=== PATIENT | female | born 1970 | race Caucasian/White ===

== ENCOUNTER 2018-11-04 14:39 | Emergency (ER) | payer OTHER, SELFPAY ==
[2018-11-04 15:04] VITALS: BP 133/85; PULSE 80; RESP 17; TEMP 36.9; O2SAT 97; BMI 27.0
[2018-11-04 15:45] VITALS: BP 116/79; PULSE 77; RESP 16; O2SAT 98
--- NOTE | 2018-11-04 16:06 | PC.NURSE ---
pt states vomiting for an hour last thursday, felt tired thursday and thursday, thursday diarrhea for an hour. pt states on and off fever since may 2018.
--- NOTE | 2018-11-04 16:20 | ED.ABDPAIN ---
HPI - Abdominal Pain <CATHIE Cheung - Last Filed: 11/04/18 22:00> General Chief Complaint: Abdominal Pain Stated Complaint: thinks she has an appendicitis Time Seen by Provider: 11/04/18 16:13 Source: patient Mode of arrival: ambulatory Limitations: no limitations History of Present Illness HPI narrative: 48-year-old healthy female that is a nonsmoker here for complaint of having nausea some vomiting and diarrhea over the past couple of days. She also reports she has had some right lower abdominal pain however she states she has had that for the last couple of years and is not necessarily acute. She was seen by her primary care provider today and due to the right lower quadrant pain was sent here for further evaluation and rule out appendicitis. She denies any fevers or chills. She is tolerating p.o. intake at this timeframe. She denies any urinary symptoms. No trauma to the abdomen. She reports that she has had abdominal discomfort on and off ever since having small bowel obstruction surgery and has had some slight adhesions. No other concerns or complaints this timeframe she denies any stressors relievers of her symptoms. Related Data Home Medications Medication Instructions Recorded Confirmed No Known Home Medications 11/04/18 11/04/18 Allergies Allergy/AdvReac Type Severity Reaction Status Date / Time Sulfa (Sulfonamide Allergy Intermediate Unverified 11/18/17 12:28 Antibiotics) [SULFA (SULFONAMIDE ANTIBIOTICS)] Review of Systems <CATHIE Cheung - Last Filed: 11/04/18 22:00> Constitutional Denies chills, Denies fever(s), Denies lethargy and Denies weakness Eyes Denies change in vision, Denies eye discharge, Denies irritation and Denies loss of vision ENT Ears, Nose, Mouth, and Throat: Denies change in voice, Denies neck pain and Denies sore throat Cardiovascular Denies chest pain, Denies irregular heart rhythm, Denies lightheadedness, Denies palpitations, Denies dyspnea, Denies dyspnea on exertion and Denies orthopnea Respiratory Denies cough, Denies dyspnea, Denies dyspnea on exertion and Denies wheezing Gastrointestinal Gastrointestinal: Reports abdominal pain, Reports diarrhea, Reports nausea and Reports vomiting Genitourinary Denies hematuria, Denies flank pain, Denies urinary incontinence and Denies urinary urgency Musculoskeletal Denies neck pain Integumentary/Breasts Denies pruritus, Denies erythema, Denies rash and Denies wounds Neurologic Denies loss of vision and Denies weakness Endocrine Denies palpitations Hematologic/Lymphatic Denies easy bruising Allergic/Immunologic Denies wheezing PFSH <CATHIE Cheung - Last Filed: 11/04/18 22:00> Social History Smoking Status: Never smoker Social History Smoking Status: Never smoker Exam <CATHIE Cheung - Last Filed: 11/04/18 22:00> Initial Vital Signs Initial Vital Signs: Vital Signs Temperature 98.5 F 11/04/18 15:04 Pulse Rate 80 11/04/18 15:04 Respiratory Rate 17 11/04/18 15:04 Blood Pressure 133/85 11/04/18 15:04 Pulse Oximetry 97 11/04/18 15:04 Const General: cooperative and well developed Nutritional Appearance: well nourished Orientation: alert, awake, oriented x3 and not confused HENPR Mouth: oral mucosae normal and moist mucous membranes Throat: posterior oropharynx normal Eyes Conjunctivae: conjunctivae normal Sclera: sclerae normal Pupils: PERRL EOM: EOM intact bilaterally Chest Chest: normal inspection of the chest Resp Effort & Inspection: normal respiratory effort, able to speak in complete sentences, no respiratory distress and no use of accessory muscles Auscultation: clear to auscultation bilaterally, no rales, no rhonchi and no wheezes Cardio Rate: regular rate Rhythm: regular rhythm Heart Sounds: no click, no gallops, no murmurs and no rubs Pulses: normal peripheral pulses GI Inspection: non-distended Palpation: soft, no hepatosplenomegaly, No guarding, No pulsatile mass and tender (Tenderness right lower quadrant) Auscultation: normal bowel sounds General: No CVA tenderness Skin General: no rashes or lesions noted, No jaundice and No petechiae Neuro General: alert, oriented x3, gait normal and no focal motor deficits Speech: speech normal <Kalyan Cano DO - Last Filed: 11/05/18 00:28> Initial Vital Signs Initial Vital Signs: Vital Signs Temperature 98.5 F 11/04/18 15:04 Pulse Rate 80 11/04/18 15:04 Respiratory Rate 17 11/04/18 15:04 Blood Pressure 133/85 11/04/18 15:04 Pulse Oximetry 97 11/04/18 15:04 Course <CATHIE Cheung - Last Filed: 11/04/18 22:00> Orders Ordered: ED Orders 11/04/18 15:55 Complete Blood Count AUTO DIFF Stat Comprehensive Metabolic Panel Stat Lipase Stat 11/04/18 16:33 CT abdomen pelvis w con Stat Discontinued Medications Sodium Chloride (Normal Saline 0.9%) 1,000 mls @ 1,000 mls/hr IV BOLUS ONE Stop: 11/04/18 17:28 Last Infusion: 11/04/18 18:37 Dose: 0 mls/hr Admin: 11/04/18 16:50 Dose: 1,000 mls/hr Vital Signs - 8 hr 11/04/18 18:06 Pulse Rate 72 Respiratory Rate 18 Blood Pressure [Right Arm] 128/72 Pulse Oximetry 100 <Kalyan Cano DO - Last Filed: 11/05/18 00:28> Orders Ordered: ED Orders 11/04/18 15:55 Complete Blood Count AUTO DIFF Stat Comprehensive Metabolic Panel Stat Lipase Stat 11/04/18 16:33 CT abdomen pelvis w con Stat Discontinued Medications Sodium Chloride (Normal Saline 0.9%) 1,000 mls @ 1,000 mls/hr IV BOLUS ONE Stop: 11/04/18 17:28 Last Infusion: 11/04/18 18:37 Dose: 0 mls/hr Admin: 11/04/18 16:50 Dose: 1,000 mls/hr Vital Signs - 8 hr 11/04/18 18:06 Pulse Rate 72 Respiratory Rate 18 Blood Pressure [Right Arm] 128/72 Pulse Oximetry 100 MDM - Abdominal Pain <CATHIE Cheung - Last Filed: 11/04/18 22:00> Lab Data Result diagrams: 11/04/18 15:55 11/04/18 15:55 Lab Results 11/04/18 11/04/18 Range/Units 15:55 15:55 WBC 5.4 (4.5-11.0) X10^3/uL RBC 5.14 (4.0-5.2) X10^6/uL Hgb 14.9 (12.0-16.0) g/dL Hct 44.3 (36-46) % MCV 86.1 (80-100) fL MCH 29.0 (26-34) PG MCHC 33.7 (30-36) % RDW 13.4 (11.6-14.8) % Plt Count 265 (150-400) X10^3/uL Neut % (Auto) 56.9 (50-75) % Lymph % (Auto) 34.9 (25-40) % [place] % (Auto) 6.5 (3-14) % Eos % (Auto) 1.1 L (2-4) % Baso % (Auto) 0.6 (0-2) % Neut # (Auto) 3100 (0686-1587) /uL Lymph # (Auto) 1900 (9693-8624) /uL [place] # (Auto) 300 (0-900) /uL Eos # (Auto) 100 (0-450) /uL Baso # (Auto) 0 (0-100) /uL Sodium 138 (137-145) mmol/L Potassium 3.7 (3.4-5.1) mmol/L Chloride 104 (98-107) mmol/L Carbon Dioxide 23 (22-32) mmol/L BUN 8 (7-17) mg/dL Creatinine 0.70 (0.52-1.04) mg/dL Estimated GFR > 60.0 (>60) mL/min BUN/Creatinine Ratio 11.4 (6-22) Glucose 85 (70-100) mg/dL Calcium 8.7 (8.4-10.2) mg/dL Total Bilirubin 0.4 (0.2-1.3) mg/dL AST 33 (14-36) IU/L ALT 32 (9-52) IU/L Alkaline Phosphatase 49 (38-126) U/L Total Protein 7.2 (6.3-8.2) g/dL Albumin 4.3 (3.5-5.0) g/dL Globulin 2.9 (1.7-4.1) g/dL Albumin/Globulin Ratio 1.5 (1.0-2.8) Lipase 100 (23-300) U/L Point of care testing: Point of Care Testing Test Results Negative Urine Dip Bedside Urine Glucose Negative Bedside Urine Bilirubin - Negative Bedside Urine Ketone ++ 40 Urine Specific [place] 1.025 Bedside Urine Occult Blood - Negative Bedside Urine pH 6.0 Bedside Urine Protein - Negative Bedside Urine Urobilinogen - Negative Bedside Urine Nitrite - Negative Bedside Urine Leukocytes - Negative Esterase Imaging Data CT scan - abdomen: Radiologist's impression: [address] [address] [address] Scan Report Signed Patient: Edwin Grajeda BANNER#: [id number] : 1970Acct:[id number] Age/Sex: 48 / FDate of Service: 11/04/18 Loc: ED Accession Number: [id number] Procedure: CT abdomen pelvis w con Ordering Provider: Ryan Valdez PROCEDURE: CT ABDOMEN PELVIS W CON INDICATIONS: Right lower quadrant pain TECHNIQUE: After the administration of intravenous contrast, 5 mm thick sections acquired from the diaphragm to the symphysis. 5 mm coronal and sagittal reformats were acquired. For radiation dose reduction, the following was used: automated exposure control, adjustment of mA and/or kV according to patient size. COMPARISON: [facility], CR, ABDOMEN ACUTE SERIES, 03/04/2017, 14:52. [facility], CT, ABDOMEN/PELVIS WITH CONTRAST, 02/13/2017, 19:58. FINDINGS: Image quality: Excellent. ABDOMEN: Lung bases: Lung bases are clear. Heart size is normal. Solid organs: Liver is normal in size. A subcentimeter liver cyst can be seen involving right liver dome. Incidental note is made of focal fatty infiltration adjacent to the falciform ligament, which is not regarded to be pathologic. Gallbladder wall is not thickened. Biliary system is non dilated. Pancreas enhances normally. Spleen is normal in size and enhancement. Incidental note is made of an accessory spleen along the hilum of the primary spleen. No adrenal nodules. Kidneys demonstrate normal size and enhancement, without hydronephrosis. Peritoneum and bowel: In this patient with this given history, scrutiny is given to the appendix. No appendix (either normal or abnormal) is identified on this study. The cecum is noted to be high riding is seen within the superior central abdomen, as before. There is mild wall thickening seen of the ascending colon. No dilated loops of small bowel are seen. No free air or significant free fluid can be seen. No loculated abscess can be seen. Nodes and vessels: No retroperitoneal or mesenteric adenopathy by size criteria. Aorta and inferior vena cava are normal in size. Miscellaneous: A mild periumbilical hernia is seen, containing fat. PELVIS: Genitourinary: Bladder wall thickness is normal. Miscellaneous: No inguinal hernias or adenopathy. Bones: No suspicious bony lesions. No vertebral body compression fractures. IMPRESSION: These imaging findings are most compatible with colitis of the ascending colon. Please correlate with infectious and inflammatory causes. The cecum is seen within the superior central abdomen, as before. No appendix is seen, either normal or abnormal. Negative for small bowel obstruction. Incidental note is made of: Subcentimeter right liver cyst Focal fatty liver infiltration Mild fat-containing periumbilical hernia Dictated by: Reinaldo Samuels M.D. on 11/04/2018 at 16:13 Approved by: Reinaldo Samuels M.D. on 11/04/2018 at 16:20 [facility] Narrative Medical decision making narrative: CT of the abdomen was obtained and shows some thickening of the wall of the ascending colon no other acute findings are found. Appendix is not seen at this time with no signs of appendicitis. CBC was obtained was unremarkable. Chem panel was obtained was also unremarkable. Lipase was unremarkable. Urinalysis was negative for both urinary tract infection and . Patient has had pain into this area on and off for the past almost 2 years. Recent nausea vomiting and diarrhea may be viral in nature. Offered to treat with Zofran patient refused. Use [id number] Tylenol as needed for any discomfort. Plenty of fluids. Will treat this acute episode nausea vomiting diarrhea as a viral in nature. Follow up with primary care provider next week for re-evaluation. If continued right abdominal pain consider GI referral. For any worsening symptoms return emergency room. <Kalyan Cano, DO - Last Filed: 11/05/18 00:28> Lab Data Lab Results 11/04/18 11/04/18 Range/Units 15:55 15:55 WBC 5.4 (4.5-11.0) X10^3/uL RBC 5.14 (4.0-5.2) X10^6/uL Hgb 14.9 (12.0-16.0) g/dL Hct 44.3 (36-46) % MCV 86.1 (80-100) fL MCH 29.0 (26-34) PG MCHC 33.7 (30-36) % RDW 13.4 (11.6-14.8) % Plt Count 265 (150-400) X10^3/uL Neut % (Auto) 56.9 (50-75) % Lymph % (Auto) 34.9 (25-40) % [place] % (Auto) 6.5 (3-14) % Eos % (Auto) 1.1 L (2-4) % Baso % (Auto) 0.6 (0-2) % Neut # (Auto) 3100 (1565-1477) /uL Lymph # (Auto) 1900 (8438-4027) /uL [place] # (Auto) 300 (0-900) /uL Eos # (Auto) 100 (0-450) /uL Baso # (Auto) 0 (0-100) /uL Sodium 138 (137-145) mmol/L Potassium 3.7 (3.4-5.1) mmol/L Chloride 104 (98-107) mmol/L Carbon Dioxide 23 (22-32) mmol/L BUN 8 (7-17) mg/dL Creatinine 0.70 (0.52-1.04) mg/dL Estimated GFR > 60.0 (>60) mL/min BUN/Creatinine Ratio 11.4 (6-22) Glucose 85 (70-100) mg/dL Calcium 8.7 (8.4-10.2) mg/dL Total Bilirubin 0.4 (0.2-1.3) mg/dL AST 33 (14-36) IU/L ALT 32 (9-52) IU/L Alkaline Phosphatase 49 (38-126) U/L Total Protein 7.2 (6.3-8.2) g/dL Albumin 4.3 (3.5-5.0) g/dL Globulin 2.9 (1.7-4.1) g/dL Albumin/Globulin Ratio 1.5 (1.0-2.8) Lipase 100 (23-300) U/L Point of care testing: Point of Care Testing Test Results Negative Urine Dip Bedside Urine Glucose Negative Bedside Urine Bilirubin - Negative Bedside Urine Ketone ++ 40 Urine Specific [place] 1.025 Bedside Urine Occult Blood - Negative Bedside Urine pH 6.0 Bedside Urine Protein - Negative Bedside Urine Urobilinogen - Negative Bedside Urine Nitrite - Negative Bedside Urine Leukocytes - Negative Esterase Discharge Plan Departure Patient Disposition: Home Clinical Impression: Abdominal pain Qualifiers: Abdominal location: right lower quadrant Qualified Code(s): R10.31 - Right lower quadrant pain Discharge Date/Time: 11/04/18 18:40 Interventions: ED Discharge Assessment Last Done: 11/04/18 18:38 Instructions: DI for Abdominal Pain-Adult Activity Restrictions/Additional Instructions: CT of the abdomen shows some mild thickening of the ascending colon wall. This may be inflammatory or infectious laboratory results do not point to an infectious process at this timeframe. And since have had pain into this area for long-term do not believe it is infectious at this timeframe. Does not appear that you have appendicitis at this timeframe. Nausea vomiting diarrhea may be due to a viral illness. Plenty of fluids and rest. Follow up with her primary care provider next week for re-evaluation. If continued pain into the area doctor here today primary care provider about referral to GI for further evaluation. For any worsening symptoms return to the emergency room. Prescriptions: No Action No Known Home Medications RF: 0 Referrals: Kristofer Davis MD [Primary Care Provider] - <Kalyan Cano DO - Last Filed: 11/05/18 00:28> Cosign ED Attending Paulature Attestation: I was immediately available in the department for consultation. Documentation has been reviewed. I agree with assessment and plan.
--- NOTE | 2018-11-04 16:33 | DI.CT.S_ITS ---
PROCEDURE: CT ABDOMEN PELVIS W CON INDICATIONS: Right lower quadrant pain TECHNIQUE: After the administration of intravenous contrast, 5 mm thick sections acquired from the diaphragm to the symphysis. 5 mm coronal and sagittal reformats were acquired. For radiation dose reduction, the following was used: automated exposure control, adjustment of mA and/or kV according to patient size. COMPARISON: [facility], CR, ABDOMEN ACUTE SERIES, 03/04/2017, 14:52. [facility], CT, ABDOMEN/PELVIS WITH CONTRAST, 02/13/2017, 19:58. FINDINGS: Image quality: Excellent. ABDOMEN: Lung bases: Lung bases are clear. Heart size is normal. Solid organs: Liver is normal in size. A subcentimeter liver cyst can be seen involving right liver dome. Incidental note is made of focal fatty infiltration adjacent to the falciform ligament, which is not regarded to be pathologic. Gallbladder wall is not thickened. Biliary system is non dilated. Pancreas enhances normally. Spleen is normal in size and enhancement. Incidental note is made of an accessory spleen along the hilum of the primary spleen. No adrenal nodules. Kidneys demonstrate normal size and enhancement, without hydronephrosis. Peritoneum and bowel: In this patient with this given history, scrutiny is given to the appendix. No appendix (either normal or abnormal) is identified on this study. The cecum is noted to be high riding is seen within the superior central abdomen, as before. There is mild wall thickening seen of the ascending colon. No dilated loops of small bowel are seen. No free air or significant free fluid can be seen. No loculated abscess can be seen. Nodes and vessels: No retroperitoneal or mesenteric adenopathy by size criteria. Aorta and inferior vena cava are normal in size. Miscellaneous: A mild periumbilical hernia is seen, containing fat. PELVIS: Genitourinary: Bladder wall thickness is normal. Miscellaneous: No inguinal hernias or adenopathy. Bones: No suspicious bony lesions. No vertebral body compression fractures. IMPRESSION: These imaging findings are most compatible with colitis of the ascending colon. Please correlate with infectious and inflammatory causes. The cecum is seen within the superior central abdomen, as before. No appendix is seen, either normal or abnormal. Negative for small bowel obstruction. Incidental note is made of: Subcentimeter right liver cyst Focal fatty liver infiltration Mild fat-containing periumbilical hernia Dictated by: Reinaldo Samuels M.D. on 11/04/2018 at 16:13 Approved by: Reinaldo Samuels M.D. on 11/04/2018 at 16:20
[2018-11-04 16:40] LABS: Add Manual Diff / Slide Review NO; Basophils Absolute Auto 0 /uL (0-100); Basophils Percent Auto 0.6 % (0-2); Eosinophils Absolute Auto 100 /uL (0-450); Eosinophils Percent Auto 1.1 % (2-4); Hematocrit 44.3 % (36-46); Hemoglobin 14.9 g/dL (12.0-16.0); Lymphocytes Absolute Auto 1900 /uL (1100-4500); Lymphocytes Percent Auto 34.9 % (25-40); Mean Corpuscular HGB Conc 33.7 % (30-36); Mean Corpuscular Volume 86.1 fL (80-100); Monocytes Absolute Auto 300 /uL (0-900); Monocytes Percent Auto 6.5 % (3-14); Neutrophils Absolute Auto 3100 /uL (1500-7000); Neutrophils Percent Auto 56.9 % (50-75); Platelet Count 265 X10^3/uL (150-400); Red Blood Cell Count 5.14 X10^6/uL (4.0-5.2); Red Cell Distribution Width 13.4 % (11.6-14.8); White Blood Cell Count 5.4 X10^3/uL (4.5-11.0)
[2018-11-04 16:45] LABS: Alanine Aminotransferase 32 IU/L (9-52); Albumin 4.3 g/dL (3.5-5.0); Albumin Globulin Ratio 1.5 (1.0-2.8); Alkaline Phosphatase 49 U/L (38-126); Aspartate Aminotransferase 33 IU/L (14-36); BUN Creatinine Ratio 11.4 (6-22); Bilirubin Total 0.4 mg/dL (0.2-1.3); Blood Urea Nitrogen 8 mg/dL (7-17); Calcium 8.7 mg/dL (8.4-10.2); Carbon Dioxide 23 mmol/L (22-32); Chloride 104 mmol/L (98-107); Estimated Glomerular Filt Rate > 60.0 mL/min (>60); Globulin 2.9 g/dL (1.7-4.1); Glucose 85 mg/dL (70-100); HEMOLYSIS 27 (0-50); Lipase 100 U/L (23-300); Potassium 3.7 mmol/L (3.4-5.1); Sodium 138 mmol/L (137-145); Total Protein 7.2 g/dL (6.3-8.2)
[2018-11-04] MEDS: SODIUM CHLORIDE 0.9% 1,000 ML 1000 ML IV (16:50)
[2018-11-04 18:06] VITALS: BP 128/72; PULSE 72; RESP 18; O2SAT 100
--- NOTE | 2018-11-04 18:12 | ED_ITS ---
HPI - Abdominal Pain <CATHIE Cheung - Last Filed: 11/04/18 22:00> General Chief Complaint: Abdominal Pain Stated Complaint: thinks she has an appendicitis Time Seen by Provider: 11/04/18 16:13 Source: patient Mode of arrival: ambulatory Limitations: no limitations History of Present Illness HPI narrative: 48-year-old healthy female that is a nonsmoker here for complaint of having nausea some vomiting and diarrhea over the past couple of days. She also reports she has had some right lower abdominal pain however she states she has had that for the last couple of years and is not necessarily acute. She was seen by her primary care provider today and due to the right lower quadrant pain was sent here for further evaluation and rule out appendicitis. She denies any fevers or chills. She is tolerating p.o. intake at this timeframe. She denies any urinary symptoms. No trauma to the abdomen. She reports that she has had abdominal discomfort on and off ever since having small bowel obstruction surgery and has had some slight adhesions. No other concerns or complaints this timeframe she denies any stressors relievers of her symptoms. Related Data Home Medications Medication Instructions Recorded Confirmed No Known Home Medications 11/04/18 11/04/18 Allergies Allergy/AdvReac Type Severity Reaction Status Date / Time Sulfa (Sulfonamide Allergy Intermediate Unverified 11/18/17 12:28 Antibiotics) [SULFA (SULFONAMIDE ANTIBIOTICS)] Review of Systems <CATHIE Cheung - Last Filed: 11/04/18 22:00> Constitutional Denies chills, Denies fever(s), Denies lethargy and Denies weakness Eyes Denies change in vision, Denies eye discharge, Denies irritation and Denies loss of vision ENT Ears, Nose, Mouth, and Throat: Denies change in voice, Denies neck pain and Denies sore throat Cardiovascular Denies chest pain, Denies irregular heart rhythm, Denies lightheadedness, Denies palpitations, Denies dyspnea, Denies dyspnea on exertion and Denies orthopnea Respiratory Denies cough, Denies dyspnea, Denies dyspnea on exertion and Denies wheezing Gastrointestinal Gastrointestinal: Reports abdominal pain, Reports diarrhea, Reports nausea and Reports vomiting Genitourinary Denies hematuria, Denies flank pain, Denies urinary incontinence and Denies urinary urgency Musculoskeletal Denies neck pain Integumentary/Breasts Denies pruritus, Denies erythema, Denies rash and Denies wounds Neurologic Denies loss of vision and Denies weakness Endocrine Denies palpitations Hematologic/Lymphatic Denies easy bruising Allergic/Immunologic Denies wheezing PFSH <CATHIE Cheung - Last Filed: 11/04/18 22:00> Social History Smoking Status: Never smoker Social History Smoking Status: Never smoker Exam <CATHIE Cheung - Last Filed: 11/04/18 22:00> Initial Vital Signs Initial Vital Signs: Vital Signs Temperature 98.5 F 11/04/18 15:04 Pulse Rate 80 11/04/18 15:04 Respiratory Rate 17 11/04/18 15:04 Blood Pressure 133/85 11/04/18 15:04 Pulse Oximetry 97 11/04/18 15:04 Const General: cooperative and well developed Nutritional Appearance: well nourished Orientation: alert, awake, oriented x3 and not confused HENCO Mouth: oral mucosae normal and moist mucous membranes Throat: posterior oropharynx normal Eyes Conjunctivae: conjunctivae normal Sclera: sclerae normal Pupils: PERRL EOM: EOM intact bilaterally Chest Chest: normal inspection of the chest Resp Effort & Inspection: normal respiratory effort, able to speak in complete sentences, no respiratory distress and no use of accessory muscles Auscultation: clear to auscultation bilaterally, no rales, no rhonchi and no wheezes Cardio Rate: regular rate Rhythm: regular rhythm Heart Sounds: no click, no gallops, no murmurs and no rubs Pulses: normal peripheral pulses GI Inspection: non-distended Palpation: soft, no hepatosplenomegaly, No guarding, No pulsatile mass and tender (Tenderness right lower quadrant) Auscultation: normal bowel sounds General: No CVA tenderness Skin General: no rashes or lesions noted, No jaundice and No petechiae Neuro General: alert, oriented x3, gait normal and no focal motor deficits Speech: speech normal <Kalyan Cano DO - Last Filed: 11/05/18 00:28> Initial Vital Signs Initial Vital Signs: Vital Signs Temperature 98.5 F 11/04/18 15:04 Pulse Rate 80 11/04/18 15:04 Respiratory Rate 17 11/04/18 15:04 Blood Pressure 133/85 11/04/18 15:04 Pulse Oximetry 97 11/04/18 15:04 Course <CATHIE Cheung - Last Filed: 11/04/18 22:00> Orders Ordered: ED Orders 11/04/18 15:55 Complete Blood Count AUTO DIFF Stat Comprehensive Metabolic Panel Stat Lipase Stat 11/04/18 16:33 CT abdomen pelvis w con Stat Discontinued Medications Sodium Chloride (Normal Saline 0.9%) 1,000 mls @ 1,000 mls/hr IV BOLUS ONE Stop: 11/04/18 17:28 Last Infusion: 11/04/18 18:37 Dose: 0 mls/hr Admin: 11/04/18 16:50 Dose: 1,000 mls/hr Vital Signs - 8 hr 11/04/18 18:06 Pulse Rate 72 Respiratory Rate 18 Blood Pressure [Right Arm] 128/72 Pulse Oximetry 100 <Kalyan Cano DO - Last Filed: 11/05/18 00:28> Orders Ordered: ED Orders 11/04/18 15:55 Complete Blood Count AUTO DIFF Stat Comprehensive Metabolic Panel Stat Lipase Stat 11/04/18 16:33 CT abdomen pelvis w con Stat Discontinued Medications Sodium Chloride (Normal Saline 0.9%) 1,000 mls @ 1,000 mls/hr IV BOLUS ONE Stop: 11/04/18 17:28 Last Infusion: 11/04/18 18:37 Dose: 0 mls/hr Admin: 11/04/18 16:50 Dose: 1,000 mls/hr Vital Signs - 8 hr 11/04/18 18:06 Pulse Rate 72 Respiratory Rate 18 Blood Pressure [Right Arm] 128/72 Pulse Oximetry 100 MDM - Abdominal Pain <CATHIE Cheung - Last Filed: 11/04/18 22:00> Lab Data Result diagrams: 11/04/18 15:55 11/04/18 15:55 Lab Results 11/04/18 11/04/18 Range/Units 15:55 15:55 WBC 5.4 (4.5-11.0) X10^3/uL RBC 5.14 (4.0-5.2) X10^6/uL Hgb 14.9 (12.0-16.0) g/dL Hct 44.3 (36-46) % MCV 86.1 (80-100) fL MCH 29.0 (26-34) PG MCHC 33.7 (30-36) % RDW 13.4 (11.6-14.8) % Plt Count 265 (150-400) X10^3/uL Neut % (Auto) 56.9 (50-75) % Lymph % (Auto) 34.9 (25-40) % [place] % (Auto) 6.5 (3-14) % Eos % (Auto) 1.1 L (2-4) % Baso % (Auto) 0.6 (0-2) % Neut # (Auto) 3100 (7377-3894) /uL Lymph # (Auto) 1900 (5500-0754) /uL [place] # (Auto) 300 (0-900) /uL Eos # (Auto) 100 (0-450) /uL Baso # (Auto) 0 (0-100) /uL Sodium 138 (137-145) mmol/L Potassium 3.7 (3.4-5.1) mmol/L Chloride 104 (98-107) mmol/L Carbon Dioxide 23 (22-32) mmol/L BUN 8 (7-17) mg/dL Creatinine 0.70 (0.52-1.04) mg/dL Estimated GFR > 60.0 (>60) mL/min BUN/Creatinine Ratio 11.4 (6-22) Glucose 85 (70-100) mg/dL Calcium 8.7 (8.4-10.2) mg/dL Total Bilirubin 0.4 (0.2-1.3) mg/dL AST 33 (14-36) IU/L ALT 32 (9-52) IU/L Alkaline Phosphatase 49 (38-126) U/L Total Protein 7.2 (6.3-8.2) g/dL Albumin 4.3 (3.5-5.0) g/dL Globulin 2.9 (1.7-4.1) g/dL Albumin/Globulin Ratio 1.5 (1.0-2.8) Lipase 100 (23-300) U/L Point of care testing: Point of Care Testing Test Results Negative Urine Dip Bedside Urine Glucose Negative Bedside Urine Bilirubin - Negative Bedside Urine Ketone ++ 40 Urine Specific [place] 1.025 Bedside Urine Occult Blood - Negative Bedside Urine pH 6.0 Bedside Urine Protein - Negative Bedside Urine Urobilinogen - Negative Bedside Urine Nitrite - Negative Bedside Urine Leukocytes - Negative Esterase Imaging Data CT scan - abdomen: Radiologist's impression: [address] [address] [address] Scan Report Signed Patient: Edwin Grajeda [facility]#: [id number] : 1970Acct:[id number] Age/Sex: 48 / FDate of Service: 11/04/18 Loc: ED Accession Number: [id number] Procedure: CT abdomen pelvis w con Ordering Provider: Ryan Valdez PROCEDURE: CT ABDOMEN PELVIS W CON INDICATIONS: Right lower quadrant pain TECHNIQUE: After the administration of intravenous contrast, 5 mm thick sections acquired from the diaphragm to the symphysis. 5 mm coronal and sagittal reformats were acquired. For radiation dose reduction, the following was used: automated exposure control, adjustment of mA and/or kV according to patient size. COMPARISON: [facility], CR, ABDOMEN ACUTE SERIES, 03/04/2017, 14:52. [facility], CT, ABDOMEN/PELVIS WITH CONTRAST, 02/13/2017, 19:58. FINDINGS: Image quality: Excellent. ABDOMEN: Lung bases: Lung bases are clear. Heart size is normal. Solid organs: Liver is normal in size. A subcentimeter liver cyst can be seen involving right liver dome. Incidental note is made of focal fatty infiltration adjacent to the falciform ligament, which is not regarded to be pathologic. Gallbladder wall is not thickened. Biliary system is non dilated. Pancreas enhances normally. Spleen is normal in size and enhancement. Incidental note is made of an accessory spleen along the hilum of the primary spleen. No adrenal nodules. Kidneys demonstrate normal size and enhancement, without hydronephrosis. Peritoneum and bowel: In this patient with this given history, scrutiny is given to the appendix. No appendix (either normal or abnormal) is identified on this study. The cecum is noted to be high riding is seen within the superior central abdomen, as before. There is mild wall thickening seen of the ascending colon. No dilated loops of small bowel are seen. No free air or significant free fluid can be seen. No loculated abscess can be seen. Nodes and vessels: No retroperitoneal or mesenteric adenopathy by size criteria. Aorta and inferior vena cava are normal in size. Miscellaneous: A mild periumbilical hernia is seen, containing fat. PELVIS: Genitourinary: Bladder wall thickness is normal. Miscellaneous: No inguinal hernias or adenopathy. Bones: No suspicious bony lesions. No vertebral body compression fractures. IMPRESSION: These imaging findings are most compatible with colitis of the ascending colon. Please correlate with infectious and inflammatory causes. The cecum is seen within the superior central abdomen, as before. No appendix is seen, either normal or abnormal. Negative for small bowel obstruction. Incidental note is made of: Subcentimeter right liver cyst Focal fatty liver infiltration Mild fat-containing periumbilical hernia Dictated by: Reinaldo Samuels M.D. on 11/04/2018 at 16:13 Approved by: Reinaldo Samuels M.D. on 11/04/2018 at 16:20 [facility] Narrative Medical decision making narrative: CT of the abdomen was obtained and shows some thickening of the wall of the ascending colon no other acute findings are found. Appendix is not seen at this time with no signs of appendicitis. CBC was obtained was unremarkable. Chem panel was obtained was also unremarkable. Lipase was unremarkable. Urinalysis was negative for both urinary tract infection and . Patient has had pain into this area on and off for the past almost 2 years. Recent nausea vomiting and diarrhea may be viral in nature. Offered to treat with Zofran patient refused. Use [id number] Tylenol as needed for any discomfort. Plenty of fluids. Will treat this acute episode nausea vomiting diarrhea as a viral in nature. Follow up with primary care provider next week for re-evaluation. If continued right abdominal pain consider GI referral. For any worsening symptoms return emergency room. <Kalyan Cano, DO - Last Filed: 11/05/18 00:28> Lab Data Lab Results 11/04/18 11/04/18 Range/Units 15:55 15:55 WBC 5.4 (4.5-11.0) X10^3/uL RBC 5.14 (4.0-5.2) X10^6/uL Hgb 14.9 (12.0-16.0) g/dL Hct 44.3 (36-46) % MCV 86.1 (80-100) fL MCH 29.0 (26-34) PG MCHC 33.7 (30-36) % RDW 13.4 (11.6-14.8) % Plt Count 265 (150-400) X10^3/uL Neut % (Auto) 56.9 (50-75) % Lymph % (Auto) 34.9 (25-40) % [place] % (Auto) 6.5 (3-14) % Eos % (Auto) 1.1 L (2-4) % Baso % (Auto) 0.6 (0-2) % Neut # (Auto) 3100 (7476-4144) /uL Lymph # (Auto) 1900 (8983-3095) /uL [place] # (Auto) 300 (0-900) /uL Eos # (Auto) 100 (0-450) /uL Baso # (Auto) 0 (0-100) /uL Sodium 138 (137-145) mmol/L Potassium 3.7 (3.4-5.1) mmol/L Chloride 104 (98-107) mmol/L Carbon Dioxide 23 (22-32) mmol/L BUN 8 (7-17) mg/dL Creatinine 0.70 (0.52-1.04) mg/dL Estimated GFR > 60.0 (>60) mL/min BUN/Creatinine Ratio 11.4 (6-22) Glucose 85 (70-100) mg/dL Calcium 8.7 (8.4-10.2) mg/dL Total Bilirubin 0.4 (0.2-1.3) mg/dL AST 33 (14-36) IU/L ALT 32 (9-52) IU/L Alkaline Phosphatase 49 (38-126) U/L Total Protein 7.2 (6.3-8.2) g/dL Albumin 4.3 (3.5-5.0) g/dL Globulin 2.9 (1.7-4.1) g/dL Albumin/Globulin Ratio 1.5 (1.0-2.8) Lipase 100 (23-300) U/L Point of care testing: Point of Care Testing Test Results Negative Urine Dip Bedside Urine Glucose Negative Bedside Urine Bilirubin - Negative Bedside Urine Ketone ++ 40 Urine Specific [place] 1.025 Bedside Urine Occult Blood - Negative Bedside Urine pH 6.0 Bedside Urine Protein - Negative Bedside Urine Urobilinogen - Negative Bedside Urine Nitrite - Negative Bedside Urine Leukocytes - Negative Esterase Discharge Plan Departure Patient Disposition: Home Clinical Impression: Abdominal pain Qualifiers: Abdominal location: right lower quadrant Qualified Code(s): R10.31 - Right lower quadrant pain Discharge Date/Time: 11/04/18 18:40 Interventions: ED Discharge Assessment Last Done: 11/04/18 18:38 Instructions: DI for Abdominal Pain-Adult Activity Restrictions/Additional Instructions: CT of the abdomen shows some mild thickening of the ascending colon wall. This may be inflammatory or infectious laboratory results do not point to an infectious process at this timeframe. And since have had pain into this area for long-term do not believe it is infectious at this timeframe. Does not appear that you have appendicitis at this timeframe. Nausea vomiting diarrhea may be due to a viral illness. Plenty of fluids and rest. Follow up with her primary care provider next week for re-evaluation. If continued pain into the area doctor here today primary care provider about referral to GI for further evaluation. For any worsening symptoms return to the emergency room. Prescriptions: No Action No Known Home Medications RF: 0 Referrals: Kristofer Davis MD [Primary Care Provider] - <Kalyan Cano DO - Last Filed: 11/05/18 00:28> Cosign ED Attending Paulature Attestation: I was immediately available in the department for consultation. Documentation has been reviewed. I agree with assessment and plan.
== END 2018-11-04 18:40 | disposition home or self-care (01) ==
PROVIDERS: Emergency Provider Nurse Practitioner Family; Family Provider Internal Medicine; PCP Internal Medicine
DX: R10.31 Right lower quadrant pain (principal)
CPT/HCPCS: 36591; 74177; 80053; 81003; 81025; 83690; 85025; 96360; 96361; 99283; 99284; Q9967

== ENCOUNTER → 2022-06-18 10:28 | Outpatient (CLI) | payer OTHER, MEDICAID, SELFPAY ==
[2022-06-18 20:44] LABS: Add Manual Diff / Slide Review NO; Basophils Absolute Auto 0 /uL (0-100); Basophils Percent Auto 0.7 % (0-2); Eosinophils Absolute Auto 100 /uL (0-450); Eosinophils Percent Auto 1.8 % (2-4); Hematocrit 45.7 % (36-46); Hemoglobin 15.2 g/dL (12.0-16.0); Lymphocytes Absolute Auto 2200 /uL (1100-4500); Lymphocytes Percent Auto 31.1 % (25-40); Mean Corpuscular HGB Conc 33.2 % (30-36); Mean Corpuscular Hemoglobin 28.3 PG (26-34); Mean Corpuscular Volume 85.4 fL (80-100); Monocytes Absolute Auto 400 /uL (0-900); Monocytes Percent Auto 6.4 % (3-14); Neutrophils Absolute Auto 4200 /uL (1500-7000); Platelet Count 298 X10^3/uL (150-400); Red Blood Cell Count 5.35 X10^6/uL (4.0-5.2); Red Cell Distribution Width 13.6 % (11.6-14.8); White Blood Cell Count 6.9 X10^3/uL (4.5-11.0)
[2022-06-18 20:55] LABS: Alanine Aminotransferase 26 IU/L (<35); Albumin 4.6 g/dL (3.5-5.0); Albumin Globulin Ratio 1.5 (1.0-2.8); Alkaline Phosphatase 82 U/L (38-126); Aspartate Aminotransferase 31 IU/L (14-36); BUN Creatinine Ratio 14.5 (6-22); Bilirubin Total 0.7 mg/dL (0.2-1.3); Blood Urea Nitrogen 11 mg/dL (7-17); Calcium 9.4 mg/dL (8.4-10.2); Carbon Dioxide 26 mmol/L (22-32); Chloride 101 mmol/L (98-107); Cholesterol 227 mg/dL (140-199); Estimated Glomerular Filt Rate > 60 mL/min (>60); Globulin 3.1 g/dL (1.7-4.1); Glucose 94 mg/dL (70-100); HDL Cholesterol 70 mg/dL (40-60); HEMOLYSIS 22 (0-50); LDL Cholesterol Calculated 138 mg/dL (<100); Potassium 3.7 mmol/L (3.4-5.1); Sodium 138 mmol/L (137-145); Total Protein 7.7 g/dL (6.3-8.2); Triglycerides 93 mg/dL (35-150)
== END ==
PROVIDERS: Family Provider Internal Medicine; PCP Physician Assistant; Visit Provider Physician Assistant
DX: Z12.11 Encounter for screening for malignant neoplasm of colon (principal); Z13.6 Encounter for screening for cardiovascular disorders; Z79.899 Other long term (current) drug therapy; F32.A Depression, unspecified; F41.9 Anxiety disorder, unspecified
CPT/HCPCS: 80053; 80061; 84443; 85025

== ENCOUNTER → 2023-05-23 15:15 | Outpatient (CLI) | payer OTHER, MEDICAID, SELFPAY ==
--- NOTE | 2023-05-23 | DI.MG.S_ITS ---
BILATERAL DIGITAL SCREENING MAMMOGRAM 3D/2D WITH CAD: 05/23/2023 CLINICAL: Routine screening. comparison: 05/14/2020, 07/12/2013 Both breasts are heterogeneously dense, which may obscure small masses (category c / 51-75% glandular tissue). Current study was also evaluated with a Computer Aided Detection (CAD) system. There is a possible developing irregular asymmetry in the right breast at 1 o'clock middle depth. This is seen in additional views and demonstrated by prior ultrasound. This is more prominent and correlates as an incidental finding. No other significant masses, calcifications, or other findings are seen in either breast. IMPRESSION: INCOMPLETE: NEEDS ADDITIONAL IMAGING EVALUATION The possible developing irregular asymmetry in the right breast is indeterminate. Additional views with possible ultrasound are recommended. Based on the Tyrer Cuzick model (a risk assessment model) the patient's lifetime risk is 14.2% and her 10 year risk is 3.5%. According to the ACR, ACS, and NCCN guidelines, an annual breast MRI exam along with mammogram is recommended if the patient's lifetime risk is 20% or greater. This exam was interpreted at Station [facility]: [id number]. NOTE: For mammograms, a report in lay terms will be sent to the patient. Approximately 15% of breast malignancies will not be visualized mammographically. In the management of a palpable breast mass, a negative mammogram must not discourage biopsy of a clinically suspicious lesion. Electronically Signed By: Isaías Feldman M.D. aty/:05/24/2023 22:11:26 letter sent: Additional Imaging Needed ACR BI-RADS Category 0: Incomplete [id number]
== END ==
PROVIDERS: Family Provider Internal Medicine; PCP Physician Assistant; Referring Provider Physician Assistant; Visit Provider Physician Assistant
DX: Z12.31 Encounter for screening mammogram for malignant neoplasm of breast (principal); R92.8 Other abnormal and inconclusive findings on diagnostic imaging of breast
CPT/HCPCS: 77063; 77067

== ENCOUNTER → 2023-11-18 08:58 | Outpatient (CLI) | payer OTHER, MEDICAID, SELFPAY ==
[2023-11-18 20:44] LABS: Add Manual Diff / Slide Review NO; Basophils Absolute Auto 100 /uL (0-100); Basophils Percent Auto 0.9 % (0-2); Eosinophils Absolute Auto 200 /uL (0-450); Hematocrit 42.5 % (36-46); Hemoglobin 14.2 g/dL (12.0-16.0); Lymphocytes Absolute Auto 2200 /uL (1100-4500); Lymphocytes Percent Auto 32.5 % (25-40); Mean Corpuscular HGB Conc 33.3 % (30-36); Mean Corpuscular Hemoglobin 28.6 PG (26-34); Mean Corpuscular Volume 85.9 fL (80-100); Monocytes Absolute Auto 400 /uL (0-900); Monocytes Percent Auto 6.5 % (3-14); Neutrophils Absolute Auto 3800 /uL (1500-7000); Neutrophils Percent Auto 57.1 % (50-75); Platelet Count 260 X10^3/uL (150-400); Red Blood Cell Count 4.95 X10^6/uL (4.0-5.2); Red Cell Distribution Width 13.9 % (11.6-14.8); White Blood Cell Count 6.7 X10^3/uL (4.5-11.0)
[2023-11-18 20:53] LABS: Alanine Aminotransferase 26 IU/L (<35); Albumin Globulin Ratio 1.4 (1.0-2.8); Alkaline Phosphatase 90 U/L (38-126); Aspartate Aminotransferase 32 IU/L (14-36); BUN Creatinine Ratio 19.4 (6-22); Bilirubin Total 0.5 mg/dL (0.2-1.3); Blood Urea Nitrogen 14 mg/dL (7-17); Carbon Dioxide 25 mmol/L (22-32); Chloride 107 mmol/L (98-107); Cholesterol 221 mg/dL (140-199); Estimated Glomerular Filt Rate > 60 mL/min (>60); Globulin 2.8 g/dL (1.7-4.1); Glucose 91 mg/dL (70-100); HDL Cholesterol 69 mg/dL (40-60); HEMOLYSIS < 15 (0-50); LDL Cholesterol Calculated 133 mg/dL (<100); Potassium 4.2 mmol/L (3.4-5.1); Sodium 137 mmol/L (137-145); Total Protein 6.8 g/dL (6.3-8.2); Triglycerides 95 mg/dL (35-150)
[2023-11-18 21:08] LABS: TSH w/ Reflex to FT4 2.08 uIU/mL (0.47-4.68)
[2023-11-18 21:47] LABS: HIV 1 & 2 Ab/Ag 4th Gen Combo NEGATIVE (NEGATIVE); Hep C Virus Ab w/Reflex Quant NEGATIVE s/c (NEGATIVE)
== END ==
PROVIDERS: Family Provider Internal Medicine; PCP Physician Assistant; Visit Provider Physician Assistant
DX: F41.9 Anxiety disorder, unspecified (principal); M25.551 Pain in right hip; M25.552 Pain in left hip; H91.90 Unspecified hearing loss, unspecified ear; Z79.899 Other long term (current) drug therapy; Z11.4 Encounter for screening for human immunodeficiency virus [HIV]; Z11.59 Encounter for screening for other viral diseases; Z13.6 Encounter for screening for cardiovascular disorders
CPT/HCPCS: 80053; 80061; 84443; 85025; 86803; 87389